=== PATIENT | male | born 1995 | race African-American/Black ===

== ENCOUNTER → 2017-12-22 | Outpatient (CLI) | payer OTHER ==
--- NOTE | 2017-12-22 14:15 | RADIOLOGY IMAGING REPORT ---
FACILITY: [facility] - [place] PATIENT NAME: Thomas Arce : 1995 MR: [id number] V: [id number] EXAM DATE: ORDERING PHYSICIAN: TREY DSOUZA TECHNOLOGIST: Location: [facility] Patient: Thomas Arce : 1995 Visit/Account:[id number] Date of Sevice: 12/22/2017 Exam type: CHEST PA AND LAT History: Positive TB test Comparison: None. Findings: The lungs are free of acute effusions, infiltrates or edema. There is no evidence of cavitary lesion s. Cardiac silhouette is normal in size. Trachea is in midline. IMPRESSION: 1. No acute cardiopulmonary process is seen. No chest radiograph evidence of active tuberculosis Report Dictated By: Latosha Schumacher MD at 12/22/2017 2:10 PM Report E-Signed By: Latosha Schumacher MD at 12/22/2017 2:11 PM WSN:[email or web address]
== END ==
LOC: RAD 12:15
PROVIDERS: ATTEND Emergency Medicine Sports Medicine
DX: R76.11 Nonspecific reaction to tuberculin skin test without active tuberculosis (principal)
CPT/HCPCS: 71046